=== PATIENT | female | born 1990 | race Caucasian/White ===

== ENCOUNTER 2017-08-21 04:33 | Emergency (ER) | payer OTHER ==
--- NOTE | 2017-08-21 04:36 | PDOC ---
History of Present Illness - General Chief Complaint: Pain, Acute Stated Complaint: SORE THROAT/FEVER Time Seen by Provider: 08/21/17 04:35 History Source: Patient Exam Limitations: No Limitations - History of Present Illness Initial Comments: 08/21/17 05:12 This is a 27-year-old female who comes in complaining of fever, cough, congestion, sore throat, and body aches. Patient has had symptoms 2 days. Patient did not get a flu shot this year. Patient said she is otherwise healthy and takes no medications other than control pills. Patient last took something for fever approximately 6 hours ago. PAST MEDICAL HISTORY: no significant history PAST SURGICAL HISTORY: no significant history FAMILY HISTORY: no pertinant history SOCIAL HISTORY: Pt lives with family and is employed. MEDICATIONS: reviewed ALLERGIES: As per nursing notes Review of Systems General: +fevers and chills, no weakness, no weight loss HEENT: No change in vision. + sore throat,. No ear pain CardioVascular: No chest pain or shortness of breath Respiratory:+ cough, or wheezing. Gastrointestinal: no nausea, vomitting, diarrhea or constipation, No rectal bleeding Genitourinary: No dysuria, hematuria, or frequency Musculoskeletal: No joint or muscle pain or swelling Neurologic: No headache, vertigo, dizziness or loss of consciousness Psychiatric: nor depression Skin: No rashes or easy bruising Endocrine: no increased thirst or abnormal weight change Allergic: no skin or latex allergy All other systems reviewed and normal Exam: General: Well-nourished well-developed individual, no acute distress HEENT: There is moderate erythema of the posterior oropharynx, tonsils are not enlarged and there is no exudate Neck: Supple, no meningeal signs, bilateral submandibular lymphadenopathy Eyes::Pupils equal reactive and round, extraocular motion intact Chest: Nontender to palpation Cardiac: S1-S2 normal, regular rate and rhythm, no murmurs rubs or gallops Respiratory: Lungs clear to auscultation bilateral Abdomen: Soft, nondistended, normal bowel sounds, nontender to palpation diffusely Extremities: Warm, dry, no cyanosis, clubbing, or edema Skin: No rashes Neuro: Alert and oriented x3, CN II - XII intact, nonfocal exam with normal strength, normal sensation, normal reflexes, normal gait, Psych: Normal mood and affect 08/21/17 06:27 Influenza screen was positive for influenza type B negative for type A and strep screen was negative also. Assessment and plan: This is a 27-year-old female who comes in with flulike symptoms and has a influenza screen is positive for influenza type B. Patient given first dose of Tamiflu here in the emergency room and a prescription was sent to her pharmacy. Patient was told she cannot return to work until she has had no fever for 24 hours without having to take any medication. Patient discharged home Past History - Past Medical History Allergies/Adverse Reactions: Allergies Allergy/AdvReac Type Severity Reaction Status Date / Time No Known Allergies Allergy Verified 08/21/17 04:34 Home Medications: Ambulatory Orders Norelgestromin/Ethin.estradiol [Xulane Patch] 1 each TD WEEKLY 08/21/17 Oseltamivir Phosphate [Tamiflu] 75 mg PO BID #10 capsule 08/21/17 - Suicide/Smoking/Psychosocial Hx Smoking History: Never smoked Hx Alcohol Use: No Drug/Substance Use Hx: No *DC/Admit/Observation/Transfer Diagnosis at time of Disposition: Influenza due to influenza virus, type B - Discharge Dispostion Disposition: HOME Condition at time of disposition: Stable Admit: No - Referrals - Patient Instructions Printed Discharge Instructions: Influenza Additional Instructions: Tylenol or Motrin U can alternated every 3 hours if needed to control the fevers body aches and headache. Stay home rest get plenty of fluids and no work in tell you have not had a fever for 24 hours without having to take any medication for fever. You are infectious as long as you have a fever. Take Tamiflu one tablet twice a day for the next 5 days. Return to the emergency department immediately with ANY new, persistent or worsening symptoms. Continue any medications as previously prescribed by your physician. You should follow up with your primary doctor as soon as possible regarding today's emergency department visit. . Please make sure your doctor reviews the results of your emergency evaluation. Thank you for coming to the Emergency Department today for your care. It was a pleasure to see you today. Please note that your evaluation is INCOMPLETE until you follow-up with your doctor. - Post Discharge Activity
[2017-08-21 04:41] VITALS: BP 126/83; PULSE 130; TEMP 100.2; BMI 21.9
[2017-08-21] MEDS ORDERED: ACETAMINOPHEN 500 MG TABLET (FP) PO ONE (04:55)
[2017-08-21] MEDS ORDERED: ACETAMINOPHEN 500 MG TABLET (FP) ONE (04:58)
[2017-08-21] MEDS ORDERED: OSELTAMIVIR PHOSPHATE 75 MG CAPSULE PO ONE (06:21)
[2017-08-21] MEDS ORDERED: OSELTAMIVIR PHOSPHATE 75 MG CAPSULE ONE (06:24)
== END 2017-08-21 06:37 | disposition home or self-care (01) ==
LOC: FER 04:33
DX: J10.1 Influenza due to other identified influenza virus with other respiratory manifestations (principal)
CPT/HCPCS: 87070; 87430; 87804; 99281-25